=== PATIENT | male | born 1970 | race Two or more races ===

== ENCOUNTER 2020-09-19 01:11 | Emergency (ER) | payer SELFPAY ==
[~2020-09-19] VITALS: Ht 157.5 cm; Wt 70.0 kg
[2020-09-19] MEDS ORDERED: INDO-16 PO (01:27)
[2020-09-19] MEDS ORDERED: APIX2.5T PO (01:27)
[2020-09-19] MEDS ORDERED: HYDR-4723 PO (01:27)
[2020-09-19] MEDS ORDERED: METH-661 PO (01:27)
[2020-09-19] MEDS ORDERED: GABA-1181 PO (01:27)
[2020-09-19 09:24] LABS: BASOPHILS % (AUTO) 0.5 % (0.0-2.0); EOSINOPHILS % (AUTO) 4.2 % (1.0-6.0); HEMATOCRIT 31.9 % (41-53); HEMOGLOBIN 10.6 g/dL (13.5-17.5); LYMPHOCYTES % (AUTO) 12.3 % (22.0-44.0); MEAN CORPUSCULAR HEMOGLOBIN 28.9 pg (26.0-34.0); MEAN CORPUSCULAR HGB CONC 33.2 G/dL (31.0-37.0); MEAN CORPUSCULAR VOLUME 87 fL (80-100); MONOCYTES # (AUTO) 0.5 K/uL (0.1-1.0); MONOCYTES % (AUTO) 5.8 % (2.0-9.0); NEUTROPHILS # (AUTO) 6.5 K/uL (1.8-7.7); NEUTROPHILS % (AUTO) 77.2 % (40.0-70.0); PLATELET COUNT (AUTO) 408 K/uL (150-450); RED BLOOD CELL COUNT(AUTO) 3.68 MIL/uL (4.50-5.90)
[2020-09-19 09:35] LABS: ALANINE AMINOTRANSFERASE 39 U/L (12-78); ALKALINE PHOSPHATASE 384 U/L (46-116); ASPARTATE AMINOTRANSFERASE 23 U/L (15-37); BILIRUBIN,TOTAL 0.6 mg/dL (0.1-1.0); CALCIUM, TOTAL 9.1 mg/dL (8.8-10.5); CHLORIDE 97 mmol/L (98-107); GLOMERULAR FILTR. RATE CALC > 60 mL/min (>60); GLUCOSE,RANDOM 182 mg/dL (70-110); POTASSIUM 4.1 mmol/L (3.5-5.1); SODIUM SERUM 131 mmol/L (136-145); TOTAL PROTEIN, SERUM 8.2 g/dL (6.4-8.2); UREA NITROGEN, BLOOD 14 mg/dL (7-18)
[2020-09-19 10:02] LABS: ANION GAP 7 mmol/L (8-16); CARBON DIOXIDE 27 mmol/L (22-29)
[2020-09-19 11:00] VITALS: BP 128/75
[2020-09-19 12:43] LABS: COVID AG,FIA SOURCE NASOPHARYNGEAL
== END 2020-09-19 12:54 | disposition home or self-care (01) ==
LOC: EMS 01:14
DX: R53.1 Weakness (principal); Z20.822 Contact with and (suspected) exposure to COVID-19; Z79.899 Other long term (current) drug therapy
CPT/HCPCS: 80053; 85025; 99285

== ENCOUNTER 2020-09-19 14:05 | Emergency (ER) | payer SELFPAY ==
[~2020-09-19] VITALS: Ht 167.6 cm; Wt 63.6 kg
[~2020-09-19 14:05] MED LIST: APIX2.5T PO; GABA-1181 PO; HYDR-4723 PO; INDO-16 PO; METH-661 PO
[2020-09-19 14:16] VITALS: BP 142/77
== END 2020-09-19 16:59 | disposition home or self-care (01) ==
LOC: EMS 14:07
DX: R53.1 Weakness (principal); Z79.899 Other long term (current) drug therapy
CPT/HCPCS: 99281; Z7502